=== PATIENT | female | born 1990 | race Caucasian/White ===

== ENCOUNTER 2016-07-27 20:54 | Outpatient (CLI) | payer OTHER ==
[~2016-07-27] VITALS: Ht 167.6 cm; Wt 95.0 kg
--- NOTE | 2016-07-27 21:58 | IPNPDOC ---
Text Note Date of Service The patient was seen on 07/27/16 at 21:54. NOTE Subjective: Yasmine is a 25yo with a drew IUP at 31+wk presents to triage c/ o decreased movement. She states she "has not felt baby move all day". No loss of fluid/vaginal bleeding/ctx. ROS: Admits: adequate hydration Denies: fever, chills, urinary symptoms, recent illness Objective: VSS NST: reassuring for gestational age with FHT 130's with moderate variability, + accels, -decels. Darwin: no CTXs or uterine irritability Physical Exam: General: WDWN gravid female in NAD Mental: A&Ox3 Abdomen: Gravid abdomen without tenderness in any quadrant. TAUS: drew IUP, positive FCA and FM, placenta anterior, cephalic presentation, HARSH 11cm Assessment: Yasmine is a 25yo with a drew IUP at 31+wk with active movement on US. HARSH 11cm. Reassuring for gestational age NST without CTXs or uterine irritability. Plan: -f/u as scheduled in OB clinic in two weeks -kick counts prn. Told pt she wants 10 kicks in two hour time period. -Nurse further educated pt on how to perform kick counts. -encouraged adequate hydration -Discussed return precautions -Medical reconciliation reviewed MD Raymond Weathers KATRINA D. MD Jul 27, 2016 21:58
== END 2016-07-27 22:01 | disposition home or self-care (01) ==
LOC: M LDO 20:54
PROVIDERS: ATTEND Obstetrics & Gynecology
DX: O36.8130 Decreased fetal movements, third trimester, not applicable or unspecified (principal); Z3A.31 31 weeks gestation of pregnancy

== ENCOUNTER 2016-08-04 11:13 | Outpatient (CLI) | payer OTHER ==
[~2016-08-04] VITALS: Ht 170.2 cm; Wt 95.0 kg
[2016-08-04 11:59] VITALS: BP 91/55
[2016-08-04] MEDS ORDERED: PRENTAB9 PO (12:10)
--- NOTE | 2016-08-04 14:09 | HPE ---
DATE OF ADMISSION: 08/04/2016 This lady is a 2, para 0, abortus 1, LMP 12/20/2015, EDC of 09/25/2016 at 32 and 4 weeks of gestation with a history of uterine cramps although in triage she had no issues. There was increased activity which translates into uterine irritability. Her chart is unavailable at the present time. Labs show she is O+, HIV negative, hepatitis negative, RPR negative, rubella immune. Varicella immune. Pap normal. Urine negative. Gonorrhea was negative, chlamydia was positive. Unable to locate [id number]. CF was positive. On examination she is not distressed. She is on her phone, texting. Symphysis fundus height is 32, vertex OA, not dilated. No vaginal loss. No discharge. NST is reactive. No contractions, not in labor. Urine is 1.005, pH is 7, rest is negative. Blood pressure is 91/55, respirations are 18, pulse 67, temperature 97.3. She presently has a category 1 strip. She is normocephalic, atraumatic. Neck full range of motion. Pupils equal and reactive to light. Distal pulses symmetric. No evidence of DVT, PE or superficial phlebitis. No wheezes or rhonchi. Chest is clear bilaterally to bases. No CVA tenderness. Uterus is nontender. Four quadrant bowel sounds are noted. Appropriate fundal height. No rashes, lesions or pruritus. She does have tattoos. No arthralgia or myalgia. No complaints of cough, wheezes, shortness of breath or dyspnea on exertion. She has no chest pain. She is not bleeding. She is neurologically complete. No complaints of incontinence, urgency or frequency. No nausea, vomiting, diarrhea or constipation. No diabetic issues. Rest of the history is unremarkable. She does not smoke or drink, does not abuse drugs. She is . There is no domestic violence. In summary have a 32+ week of gestation with increased activity translating into uterine irritability. Discharged undelivered with instructions. Has a followup appointment in 48 hours in the clinic.
== END 2016-08-04 12:50 | disposition home or self-care (01) ==
LOC: M LDO 11:13
PROVIDERS: ATTEND Obstetrics & Gynecology
DX: O62.0 Primary inadequate contractions (principal); Z3A.32 32 weeks gestation of pregnancy

== ENCOUNTER 2016-08-29 17:24 | Outpatient (CLI) | payer OTHER ==
[~2016-08-29] VITALS: Ht 157.5 cm; Wt 105.0 kg
[~2016-08-29 17:24] MED LIST: PRENTAB9 PO
== END 2016-08-29 19:21 | disposition home or self-care (01) ==
LOC: M LDO 17:24
PROVIDERS: ATTEND Obstetrics & Gynecology
DX: O36.8130 Decreased fetal movements, third trimester, not applicable or unspecified (principal); Z3A.36 36 weeks gestation of pregnancy

== ENCOUNTER 2016-09-27 11:57 | Outpatient (CLI) | payer OTHER ==
[~2016-09-27] VITALS: Ht 170.2 cm; Wt 100.0 kg
[2016-09-27 12:14] VITALS: BP 114/61
--- NOTE | 2016-09-27 14:28 | REP ---
BIOPHYSICAL PROFILE OB ULTRASOUND: 08/30/2016 CLINICAL HISTORY: Term fetus at 40 weeks 6 days by initial ultrasound. Evaluate well-being. COMPARISON: 04/13/2016 Today's study shows a single intrauterine gestation in vertex presentation with shadowing of the skull obscuring the cervix. Amniotic fluid volume is subjectively normal with an index measurement that is 11.4. The normal ranges some 0.1 - 20.8 and the largest fluid pocket is 3.6 cm. Mid cord umbilical artery Doppler shows an S/D ratio of 1.62 with normal forward diastolic flow and resistive index of 0.38. There are grade 3 placental changes with the anterior placenta showing no previa or abruption. heart activity 153 and regular. Biophysical Profile: Breathing 2 Movement 2 Tone 2 HARSH 2 IMPRESSION: 1. Single intrauterine gestation in vertex position. She is a 40 weeks 6 days by initial ultrasound. 2. Anterior grade 3 placenta without previa abruption. Cervix obscured by shadowing from the skull. 3. Normal amniotic fluid volume with index 11.4 cm. Umbilical cord Doppler with S/D ratio 1.62 and normal forward diastolic flow. 4. Biophysical profile score 8/8. heart rate 153. Signed by Jero Nathan MD 09/27/2016 04:19 P
== END 2016-09-27 17:03 | disposition home or self-care (01) ==
LOC: M LDO 11:57
PROVIDERS: ATTEND Advanced Practice Midwife
DX: O47.1 False labor at or after 37 completed weeks of gestation (principal); Z3A.40 40 weeks gestation of pregnancy

== ENCOUNTER 2016-09-27 22:06 | Outpatient (CLI) | payer OTHER ==
[~2016-09-27] VITALS: Ht 170.2 cm; Wt 103.0 kg
[2016-09-27 22:15] VITALS: BP 137/81
[2016-09-27 22:20] VITALS: BP 138/81
[2016-09-27] MEDS ORDERED: LACTATED RINGER'S 1000 ML As Ordered ONE (22:34)
[2016-09-27] MEDS ORDERED: LR 1,000 ML IV ONE (22:45)
[2016-09-27 23:52] VITALS: BP 127/70
[2016-09-28 00:56] VITALS: BP 134/84
== END 2016-09-28 02:26 | disposition home or self-care (01) ==
LOC: M LDO 22:06
PROVIDERS: ATTEND Obstetrics & Gynecology
DX: O47.1 False labor at or after 37 completed weeks of gestation (principal); Z3A.40 40 weeks gestation of pregnancy

== ENCOUNTER 2016-09-28 10:42 | Outpatient (CLI) | payer OTHER ==
[~2016-09-28] VITALS: Ht 170.2 cm; Wt 104.0 kg
--- NOTE | 2016-09-28 21:58 | HPE ---
DATE OF ADMISSION: 09/28/2016 HISTORY: This lady is a 25-year-old 2, para 0, abortio 1, last menstrual period (LMP) 12/20/2015, estimated date of confinement (EDC) 09/25/2016, at 40 and 2 weeks of gestation, has had a long history of contractions, worsening over time. She was seen in the clinic on 09/27/2016, and she was brought over to labor and delivery. She was monitored for several hours and despite the fact that she is having intermittent contractions which she describes the pain is 11/, her cervix basically has not changed from her clinic visit until now on 09/28/2016, at 02:35 in the morning. When she was seen in the clinic and transferred over here, solar electric installer saw her several hours of evaluation with no change in her cervix. She was discharged and told to return if her contractions are worsening. She came back with worsening contractions. She was monitored over the next multiple hours and there was basically no change in her cervix, -1 station, 1-2 cm, posterior, soft and about 70% effaced. She was still having contractions of moderate intensity 3-6 minutes apart, but she is having category one strip. Her blood pressure is 127/70, respirations 20, pulse 72, temperature 90.2. Urine 1.005, pH 5 and negative, negative, negative. Her risk factors is positive for delta F 508CF. is negative. Erskine was negative. Chlamydia was positive, test of cure was negative. Rest of her lab results O positive, HIV negative, hepatitis negative, RPR negative, rubella immune. Varicella immune. Pap normal. Urine negative. one-hour glucose was 136, three-hour glucose was negative. OBJECTIVE: The rest of the examination, she is distressed but contractions are not increasing in intensity nor are they decreasing and they have not changed her cervical status. She is normocephalic, atraumatic. Neck: Full range of motion. Pupils equal and reactive to light. Distal pulses symmetric. No evidence of deep venous thrombosis (DVT), pulmonary embolism (PE), or superficial phlebitis. Lungs are clear bilaterally to bases. No wheezes or rhonchi. Uterus is nontender. Four quadrant bowel sounds are noted. Vertex presenting. No rashes, lesions or pruritus. No arthralgia, myalgia. No complaints of cough, wheezes, shortness of breath or dyspnea on exertion. She is not bleeding. Neuro complete. No incontinence, urgency, frequency. No nausea, vomiting, diarrhea or constipation. Diabetic issues were investigated. ASSESSMENT AND PLAN: Our plan at the present was we monitor her. We hydrated her. We reassessed her in several hours and there is basically no change in her cervix nor her category one strip. We planned on discharge with precautions, ruptured membranes, bleeding, kick chart. At home Tylenol, Benadryl, warm bath or shower, to return at any time should be intensity increase. At the present time, she is having uterine irritability with no change of her cervix and category one strip. The patient was discharged undelivered.
== END 2016-09-28 12:52 | disposition home or self-care (01) ==
LOC: M LDO 10:42
PROVIDERS: ATTEND Obstetrics & Gynecology
DX: O47.1 False labor at or after 37 completed weeks of gestation (principal); Z3A.40 40 weeks gestation of pregnancy

== ENCOUNTER 2016-09-28 23:19 | Inpatient (IN) | payer OTHER ==
[~2016-09-28] VITALS: Ht 170.2 cm; Wt 101.0 kg
[2016-09-28 23:46] VITALS: BP 117/69
[2016-09-29] VITALS (30 sets, daily range): BP systolic 104–132; BP diastolic 56–80
[2016-09-29] MEDS ORDERED: LACTATED RINGER'S 1000 ML IV STA (01:06)
[2016-09-29 02:08] LABS: MEAN CORPUSCULAR HEMOGLOBIN 24.5 pg (27.0-33.0); MEAN CORPUSCULAR HGB CONC 32.4 g/dl (32.0-36.5); MEAN CORPUSCULAR VOLUME 75.8 fl (80.0-96.0); RED CELL DISTRIBUTION WIDTH 14.5 % (11.5-14.5); WHITE BLOOD COUNT 13.4 K/mm3 (4.0-10.0)
[2016-09-29] MEDS ORDERED: FENTANYL 2MCG/ML ROPIVACAINE 0.2% NACL 250 ML CADD As Ordered ONE (02:40)
[2016-09-29] MEDS ORDERED: REFRIGERATOR IV KEYS XX PRN (03:30)
[2016-09-29] MEDS ORDERED: ONDANSETRON 4MG/2ML VIAL (J2405) IV PRN ×2 (03:30→06:15)
[2016-09-29] MEDS ORDERED: LACTATED RINGER'S 1000 ML IV PRN (03:30)
[2016-09-29] MEDS ORDERED: FENTANYL/ROPIVACAINE/NACL CADD 250 ML EPIDURAL SCH (03:30)
[2016-09-29] MEDS ORDERED: EPIDURAL COMMENT XX SCH (03:30)
[2016-09-29] MEDS ORDERED: NALOXONE INJ 0.4 MG/1 ML VIAL (J2310) IV PRN (03:30)
[2016-09-29] MEDS ORDERED: diphenhydrAMINE INJ 50MG/ML VIAL (J1200) IV PRN (03:30)
[2016-09-29] MEDS ORDERED: ePHEDrine SULFATE 25 MG/5 ML(5MG/ML) SYRINGE IV PRN (03:30)
[2016-09-29] MEDS ORDERED: EPIDURAL/PCA KEYS XX PRN (03:30)
[2016-09-29] MEDS ORDERED: OXYTOCIN 30 UNITS IN 0.9% NaCl 500ML IV BAG (J2590) As Ordered ONE (03:55)
[2016-09-29] MEDS ORDERED: OXYTOCIN DRIP 30 UNITS in APPROPRIATE DILUENT 1 EA IV SCH (06:08)
[2016-09-29] MEDS ORDERED: ACETAMINOPHEN 500 MG TAB PO PRN (06:15)
[2016-09-29] MEDS ORDERED: METHYLERGONOVINE MALEATE 0.2 MG/ML VIAL (J2210) IM PRN (06:15)
[2016-09-29] MEDS ORDERED: RHOGAM 300 MCG (1500 IU) INJ (J2790) IM SCH (06:15)
[2016-09-29] MEDS ORDERED: MEASLES,MUMPS,RUBELLA VACCINE INJ (MMR-II) (90707) SC SCH (06:15)
[2016-09-29] MEDS ORDERED: DIBUCAINE 1% OINTMENT 30GM TOP PRN (06:15)
[2016-09-29] MEDS ORDERED: PROMETHAZINE 25 MG TAB PO PRN (06:15)
[2016-09-29] MEDS: DOCUSATE SODIUM 100 MG CAP PO SCH ×2 (09:00→21:13)
[2016-09-29] MEDS: PRENATAL VITAMIN TAB PO SCH (09:00)
[2016-09-29] MEDS: IBUPROFEN 800 MG TAB PO PRN ×2 (14:12→22:58)
[2016-09-30 05:25] VITALS: BP 126/78
[2016-09-30] MEDS: DOCUSATE SODIUM 100 MG CAP PO SCH (08:37)
[2016-09-30] MEDS: IBUPROFEN 800 MG TAB PO PRN (08:37)
[2016-09-30] MEDS: PRENATAL VITAMIN TAB PO SCH (08:37)
[2016-09-30] MEDS ORDERED: IBUP-1114 PO (14:15)
[2016-09-30] MEDS ORDERED: ACET50TA PO (14:15)
--- NOTE | 2016-10-01 05:50 | IPN ---
DATE OF VISIT: 09/30/2016 This patient has requested circumcision of their male . After discussing the risks and benefits of circumcision, medical and nonmedical indications, the penile block and aftercare, expressed understanding of the penile block and aftercare, signed and witnessed consent form. We await the clearance by the scudding inspector.
== END 2016-09-30 17:45 | disposition home or self-care (01) | DRG 775 ==
LOC: M LDO 23:19 → M LDI 09-29 00:55 → M OBS 09-29 07:49
PROVIDERS: ADMIT Obstetrics & Gynecology; ATTEND Obstetrics & Gynecology
PROC: 10E0XZZ Delivery of Products of Conception, External Approach (ICD-10-PCS; principal; 2016-09-29)
PROC: 0HQ9XZZ Repair Perineum Skin, External Approach (ICD-10-PCS; 2016-09-29)
DX: O48.0 Post-term pregnancy (principal); Z37.0 Single live birth; Z3A.40 40 weeks gestation of pregnancy; O70.0 First degree perineal laceration during delivery